=== PATIENT | female | born 1935 | race Caucasian/White ===

== ENCOUNTER 2021-04-23 18:25 | Inpatient (IN) | payer BC, OTHER ==
[~2021-04-23] VITALS: Ht 162.6 cm; Wt 76.2 kg
[2021-04-23] MEDS ORDERED: WARF1TAB2 (18:34)
--- NOTE | 2021-04-23 19:15 | NUR ---
Report recieved by Ashley. Pt was bib ra for a ground level mechanical fall and severe left arm pain.
[2021-04-23] MEDS ORDERED: MORPHINE SULFATE 2 MG/1 ML DISP.SYRIN IV ONE (19:30)
[2021-04-23] MEDS ORDERED: ONDANSETRON 4 MG/2 ML VIAL IV ONE ×2 (19:30→21:45)
[2021-04-23] MEDS ORDERED: ONDANSETRON 4 MG/2 ML VIAL ONE ×2 (19:32→21:50)
[2021-04-23] MEDS ORDERED: MORPHINE SULFATE 4 MG/1 ML DISP.SYRIN ONE ×2 (19:32→21:50)
[2021-04-23 19:48] LABS: HEMATOCRIT 35.7 % (31.2-41.9); MEAN CORPUSCULAR VOLUME 92.9 fL (75.5-95.3); PLATELET COUNT (AUTO) 378 K/uL (179-408)
--- NOTE | 2021-04-23 19:56 | NUR ---
Pt. taken to CT.
[2021-04-23 20:00] LABS: CARBON DIOXIDE 25 mmol/L (21-32); CHLORIDE 107 mmol/L (98-107); GLUCOSE 117 mg/dL (74-106); POTASSIUM 4.6 mmol/L (3.5-5.1); UREA NITROGEN, BLOOD 33 mg/dL (7-18)
[2021-04-23 20:15] LABS: ALANINE AMINOTRANSFERASE 23 U/L (14-59); ALKALINE PHOSPHATASE 74 U/L (50-136); ASPARTATE AMINOTRANSFERASE 20 U/L (15-37); BILIRUBIN,DIRECT 0.1 mg/dL (0.0-0.2); BILIRUBIN,TOTAL 0.4 mg/dL (0.2-1.0); TOTAL PROTEIN, SERUM 7.2 g/dL (6.4-8.2)
[2021-04-23] MEDS ORDERED: MORPHINE SULFATE 4 MG/1 ML DISP.SYRIN IV ONE (21:45)
[2021-04-23] MEDS ORDERED: Z GUARD REMEDY PASTE 57 GM TUBE TOP PRN (22:15)
[2021-04-23] MEDS ORDERED: ONDANSETRON 4 MG/2 ML VIAL IV PRN (22:15)
[2021-04-23] MEDS ORDERED: ACETAMINOPHEN 325 MG TABLET PO PRN (22:15)
--- NOTE | 2021-04-23 23:14 | NUR ---
Gave report to AMAYA Scott.
[2021-04-23 23:27] VITALS: BP 110/59
[2021-04-23] MEDS: IV NS 1000 ML 1,000 ML IV PRN (23:57)
[2021-04-24 00:04] VITALS: BP 121/79
[2021-04-24] MEDS: MORPHINE SULFATE 2 MG/1 ML DISP.SYRIN IV PRN ×4 (00:42→20:22)
--- NOTE | 2021-04-24 05:49 | NUR ---
Pt arrived on unit on 04/23/21 at 2345H in stable condition. Patient is AOx3 and forgetful at times. Patient is pleasant and able to be redirected. C/o pain that is relieved by Morphine. Able to make needs known. Safety and comfort provided. No other issues or concerns at this time, will endorse to day shift.
[2021-04-24 06:34] LABS: HEMATOCRIT 31.3 % (31.2-41.9); MEAN CORPUSCULAR HEMOGLOBIN 31.1 uug (24.7-32.8); MEAN CORPUSCULAR VOLUME 93.9 fL (75.5-95.3); PLATELET COUNT (AUTO) 241 K/uL (179-408)
[2021-04-24 06:53] LABS: CARBON DIOXIDE 25 mmol/L (21-32); CHLORIDE 109 mmol/L (98-107); CHOLESTEROL 141 mg/dL (<200); CREATININE 1.9 mg/dL (0.6-1.3); GLUCOSE 117 mg/dL (74-106); HDL CHOLESTEROL 63 mg/dL (40-60); MAGNESIUM 2.1 mg/dL (1.8-2.4); PHOSPHOROUS 3.6 mg/dL (2.5-4.9); POTASSIUM 4.8 mmol/L (3.5-5.1); TRIGLYCERIDES 49 MG/DL (30-150); UREA NITROGEN, BLOOD 31 mg/dL (7-18)
--- NOTE | 2021-04-24 07:37 | NUR ---
Received patient resting in bed. AOx3, forgetful at times. On room air. No signs of acute distress. With right FA #22 IV access with PNSS running at 75cc/hr. Bed locked and in low position Will continue to monitor.
[2021-04-24] MEDS: HEPARIN SODIUM,PORCINE 5,000 UNITS/ML VIAL SQ SCH ×2 (11:20→21:50)
[2021-04-24] MEDS: FERROUS SULFATE 325 MG TABEC PO SCH (11:38)
[2021-04-24] MEDS: CYANOCOBALAMIN 1,000 MCG TABLET PO SCH (11:38)
[2021-04-24] MEDS: ASPIRIN 81 MG TAB.CHEW PO SCH (11:38)
[2021-04-24 12:00] VITALS: BP 143/47
[2021-04-24] MEDS: IV NS 1000 ML 1,000 ML IV PRN (13:38)
[2021-04-24] MEDS ORDERED: WARF1TAB2 PO (15:14)
[2021-04-24] MEDS ORDERED: ASPI-866 PO (15:17)
[2021-04-24] MEDS ORDERED: LEVO25TA9 PO (15:24)
[2021-04-24] MEDS ORDERED: RABE20TA32 PO (15:24)
[2021-04-24] MEDS ORDERED: FURO-152 PO (15:24)
[2021-04-24] MEDS ORDERED: LOSA25TA27 PO (15:24)
[2021-04-24] MEDS ORDERED: FERR325T28 PO (15:24)
[2021-04-24] MEDS ORDERED: CYAN-51 PO (15:24)
[2021-04-24] MEDS ORDERED: SIMV10TA98 PO (15:24)
[2021-04-24] MEDS ORDERED: WARF1TAB86 PO (15:27)
[2021-04-24 16:22] VITALS: BP 137/53
[2021-04-24 20:05] VITALS: BP 127/56
--- NOTE | 2021-04-24 20:22 | NUR ---
PATIENT ALERT ORIENTED, NO SOB NO CHEST PAIN, COMPLAIN OF LEFT SHOULDER PAIN 9/10, GIVEN MORPHINE IV ORDERED. FAMILY AT BEDSIDE, ICE PACK THE LEFT SHOULDER WHICH HELPS THE PAIN, CALL LIGHT WITH REACH.
[2021-04-24] MEDS: SIMVASTATIN 10 MG TABLET PO SCH (21:49)
[2021-04-25] MEDS: MORPHINE SULFATE 2 MG/1 ML DISP.SYRIN IV PRN ×2 (03:12→09:42)
[2021-04-25] MEDS: IV NS 1000 ML 1,000 ML IV PRN (03:13)
[2021-04-25 04:05] VITALS: BP 166/67
[2021-04-25] MEDS: LEVOTHYROXINE SODIUM 25 MCG TABLET PO SCH (06:07)
[2021-04-25] MEDS: PANTOPRAZOLE SODIUM 40 MG TABLET.DR PO SCH (06:07)
[2021-04-25 06:29] LABS: HEMATOCRIT 29.9 % (31.2-41.9); MEAN CORPUSCULAR HEMOGLOBIN 30.4 uug (24.7-32.8); MEAN CORPUSCULAR VOLUME 92.9 fL (75.5-95.3); PLATELET COUNT (AUTO) 299 K/uL (179-408)
--- NOTE | 2021-04-25 06:42 | NUR ---
PATIENT ALERT ORIENTED, CONT ON PAIN MANAGEMENT DUE LEFT SHOULDER FX, LEFT SHOULDER HAS SLING IN PLACE, CONT TO MONITOR.
[2021-04-25] MEDS ORDERED: PROPOFOL 200 MG/20 ML BOTTLE IV ONE (06:53)
[2021-04-25] MEDS ORDERED: GLYCOPYRROLATE 0.2 MG/ML VIAL MC ONE (06:53)
[2021-04-25] MEDS ORDERED: DEXAMETHASONE SOD PHOSPHATE 4 MG INJ IV ONE (06:53)
[2021-04-25] MEDS ORDERED: CEFAZOLIN 1 G VIAL MC ONE (06:53)
[2021-04-25] MEDS ORDERED: NEOSTIGMINE METHYLSULFATE 10 MG/10 ML VIAL IV ONE (06:53)
[2021-04-25 06:58] LABS: CARBON DIOXIDE 24 mmol/L (21-32); CHLORIDE 107 mmol/L (98-107); CREATININE 1.5 mg/dL (0.6-1.3); GLUCOSE 101 mg/dL (74-106); MAGNESIUM 2.1 mg/dL (1.8-2.4); PHOSPHOROUS 2.2 mg/dL (2.5-4.9); POTASSIUM 4.6 mmol/L (3.5-5.1); UREA NITROGEN, BLOOD 30 mg/dL (7-18)
--- NOTE | 2021-04-25 07:30 | NUR ---
Handoff report received. Pt is A&Ox3, stable condition, no c/o of pain, v/s WDL. No SOB noted. No s/s of respiratory distress noted. Side rails up as appropriate, bed locked in low position. Call light and table within reach. All needs met at this time.
[2021-04-25] MEDS: HEPARIN SODIUM,PORCINE 5,000 UNITS/ML VIAL SQ SCH (09:00)
[2021-04-25] MEDS: ASPIRIN 81 MG TAB.CHEW PO SCH (09:40)
[2021-04-25] MEDS: FERROUS SULFATE 325 MG TABEC PO SCH (09:41)
[2021-04-25] MEDS: CYANOCOBALAMIN 1,000 MCG TABLET PO SCH (09:42)
[2021-04-25 12:00] VITALS: BP 173/88
[2021-04-25] MEDS ORDERED: PHYTONADIONE 5 MG TABLET PO ONE (12:00)
[2021-04-25] MEDS ORDERED: hydrALAZINE HCL 20 MG/1 ML VIAL IV ONE (12:15)
[2021-04-25 15:57] VITALS: BP 140/58
[2021-04-25] MEDS ORDERED: POLYMYXIN B SULFATE 500,000 UNITS VIAL ONE (15:57)
[2021-04-25] MEDS ORDERED: BUPIVACAINE 0.25% 30 ML VIAL ONE (15:58)
[2021-04-25] MEDS ORDERED: VANCOMYCIN 1000 MG VIAL ONE (15:58)
[2021-04-25] MEDS ORDERED: FENTANYL CITRATE 100 MCG/2 ML AMPUL ONE ×2 (16:19→19:12)
[2021-04-25] MEDS ORDERED: ROCURONIUM BROMIDE 50 MG/5 ML VIAL ONE (16:19)
[2021-04-25] MEDS ORDERED: SEVOFLURANE 250 ML BOTTLE ONE (16:29)
[2021-04-25] MEDS ORDERED: SODIUM PHOSPHATE MM 15 MMOL in IV NORMAL SALINE 250 ML IV ONE (16:30)
--- NOTE | 2021-04-25 16:40 | NUR ---
Pt left for procedure. A&Ox3, in stable condition, v/s wdl, no s/s respiratory distress.
[2021-04-25] MEDS ORDERED: BUPIVACAINE PF 0.5% 30 ML VIAL ONE (18:19)
[2021-04-25] MEDS ORDERED: IV D5W-0.45% NS +20 KCL 1,000 ML IV ONE (19:30)
[2021-04-25] MEDS ORDERED: LABETALOL HCL 100 MG/20 ML VIAL ONE (20:01)
[2021-04-25] MEDS: IV D5W-0.45% NS +20 KCL 1,000 ML IV PRN (20:30)
--- NOTE | 2021-04-25 20:30 | NUR ---
Pt came back from Surgery. A&Ox3, verbally responsive, able to make needs known. On oxygen at 2LPM via NC, no signs of respiratory distress. With sling on left shoulder. Repositioned comfortably in bed, IVF infusing well. New orders carried out. Will continue to monitor.
[2021-04-25 20:35] VITALS: BP 152/62
[2021-04-25] MEDS: SIMVASTATIN 10 MG TABLET PO SCH (20:54)
[2021-04-25] MEDS: HYDROCODONE/APAP 10-325 MG TABLET PO PRN (20:56)
[2021-04-25 21:15] VITALS: BP 142/75
[2021-04-26] MEDS: CEFAZOLIN 1 G in IV DEXTROSE 5% 50 ML IV SCH ×2 (01:17→08:26)
[2021-04-26 04:00] VITALS: BP 132/69
[2021-04-26] MEDS: MORPHINE SULFATE 4 MG/1 ML DISP.SYRIN IV PRN ×3 (04:03→17:20)
[2021-04-26] MEDS: PANTOPRAZOLE SODIUM 40 MG TABLET.DR PO SCH (06:05)
[2021-04-26] MEDS: LEVOTHYROXINE SODIUM 25 MCG TABLET PO SCH (06:05)
--- NOTE | 2021-04-26 06:25 | NUR ---
Slept intermittently through the night. PRN Pain medication administered as ordered. Tolerated due medications. Dressing clean and intact, applied ice on L shoulder, positioned comfortably in bed as needed. Pt was anxious sometimes but easily consolable. Safety precautions maintained at all times. All needs attended to and met.
[2021-04-26 06:32] LABS: HEMATOCRIT 31.9 % (31.2-41.9); MEAN CORPUSCULAR HEMOGLOBIN 29.9 uug (24.7-32.8); MEAN CORPUSCULAR VOLUME 91.8 fL (75.5-95.3); PLATELET COUNT (AUTO) 311 K/uL (179-408)
[2021-04-26 06:50] LABS: CARBON DIOXIDE 19 mmol/L (21-32); CHLORIDE 107 mmol/L (98-107); CREATININE 1.4 mg/dL (0.6-1.3); GLUCOSE 204 mg/dL (74-106); MAGNESIUM 1.9 mg/dL (1.8-2.4); PHOSPHOROUS 3.2 mg/dL (2.5-4.9); POTASSIUM 4.5 mmol/L (3.5-5.1); UREA NITROGEN, BLOOD 23 mg/dL (7-18)
--- NOTE | 2021-04-26 07:15 | NUR ---
patient in bed awake, patient confused but reoriented. patient has no complains of any SOB, pain or discomfort at this time. call light and belongings kept within reach. safety precautions in place. will continue to monitor.
[2021-04-26] MEDS: FERROUS SULFATE 325 MG TABEC PO SCH (08:26)
[2021-04-26] MEDS: ASPIRIN 81 MG TAB.CHEW PO SCH (08:26)
[2021-04-26] MEDS: CYANOCOBALAMIN 1,000 MCG TABLET PO SCH (08:26)
[2021-04-26] MEDS: HYDROCODONE/APAP 10-325 MG TABLET PO PRN ×2 (10:12→20:39)
[2021-04-26] MEDS: IV D5W-0.45% NS +20 KCL 1,000 ML IV PRN (10:42)
[2021-04-26 12:00] VITALS: BP 139/37
[2021-04-26] MEDS ORDERED: FERROUS SULFATE 325 MG TABEC PO SCH (13:00)
[2021-04-26] MEDS ORDERED: SIMVASTATIN 10 MG TABLET PO SCH (13:00)
[2021-04-26] MEDS ORDERED: CYANOCOBALAMIN 1,000 MCG TABLET PO SCH (13:00)
[2021-04-26] MEDS ORDERED: LEVOTHYROXINE SODIUM 25 MCG TABLET PO SCH (13:00)
[2021-04-26] MEDS ORDERED: ASPIRIN EC 81 MG TABLET.DR PO SCH (13:00)
[2021-04-26] MEDS: LOSARTAN POTASSIUM 25 MG TABLET PO SCH (14:20)
[2021-04-26 15:55] VITALS: BP 105/73
[2021-04-26] MEDS: WARFARIN SODIUM 2 MG TABLET PO SCH (17:31)
--- NOTE | 2021-04-26 18:22 | NUR ---
patient in bed awake, HOB elevated. repositioned for comfort. no complains of any SOB, pain or discomfort at this time. patient on Room air with saturation at 99%. safety precautions in place. at bedside. call light and belongings within reach. will report to oncoming nurse.
[2021-04-26 20:06] VITALS: BP 140/67
[2021-04-26] MEDS: SIMVASTATIN 10 MG TABLET PO SCH (20:38)
--- NOTE | 2021-04-26 23:33 | NUR ---
RECEIVED REPORT FROM AM NURSE MS PT IS ALERT AND ORIENTED X3 DAUGHTER AT BEDSIDE PT C/O LT SHUOULDER PAIN. CALL LIGHT WITHIN REACH WILL GET MREDICATION FOR PAIN.
--- NOTE | 2021-04-27 00:10 | NUR ---
PT WAS GIVEN HS MEDICATION AND NORCO 10/325 FOR PAIN 05/20 NO ADVERSE REACTION FROM MEDICATION. CALL LIGHT WITHIN REACH BED IN LOW POSITION AND PT NEURO CHECK WERE DONE . WILL CONTINUE TO MONITOR HOURLY.
[2021-04-27] MEDS: IV D5W-0.45% NS +20 KCL 1,000 ML IV PRN (00:21)
[2021-04-27 04:06] VITALS: BP 113/62
[2021-04-27] MEDS: PANTOPRAZOLE SODIUM 40 MG TABLET.DR PO SCH (06:11)
[2021-04-27] MEDS: LEVOTHYROXINE SODIUM 25 MCG TABLET PO SCH (06:11)
[2021-04-27 06:25] LABS: HEMATOCRIT 30.1 % (31.2-41.9); MEAN CORPUSCULAR HEMOGLOBIN 29.8 uug (24.7-32.8); MEAN CORPUSCULAR VOLUME 92.1 fL (75.5-95.3); PLATELET COUNT (AUTO) 309 K/uL (179-408)
[2021-04-27 06:35] LABS: CARBON DIOXIDE 21 mmol/L (21-32); CHLORIDE 105 mmol/L (98-107); CREATININE 1.4 mg/dL (0.6-1.3); GLUCOSE 112 mg/dL (74-106); MAGNESIUM 2.1 mg/dL (1.8-2.4); POTASSIUM 4.8 mmol/L (3.5-5.1); UREA NITROGEN, BLOOD 26 mg/dL (7-18)
[2021-04-27] MEDS: ASPIRIN 81 MG TAB.CHEW PO SCH (08:08)
[2021-04-27] MEDS: CYANOCOBALAMIN 1,000 MCG TABLET PO SCH (08:08)
[2021-04-27] MEDS: FERROUS SULFATE 325 MG TABEC PO SCH (08:08)
[2021-04-27] MEDS: LOSARTAN POTASSIUM 25 MG TABLET PO SCH (08:09)
[2021-04-27] MEDS: HYDROCODONE/APAP 10-325 MG TABLET PO PRN ×2 (08:54→14:00)
--- NOTE | 2021-04-27 08:54 | NUR ---
RECEIVED IN BED AWAKE ALERT AND ORIENTED COOPERATIVE MEDICATED FOR C/O PAIN AND DISCOMFORTS ORDERED REMAIN ON IVF ORDERED WITH NO S/S OF INFILTERATION ON SITE LEFT SHOULDER WITH DRESSING INTACT WITH SLING WITH ADEQUATE CIRCULATION AT THIS TIME ALL HER PERSONAL BELONGINGS ARE WITHIN EASY REACH AT THIS TIME WILL CONTINUE TO OBSERVE.
[2021-04-27 11:34] VITALS: BP 132/76
--- NOTE | 2021-04-27 11:47 | NUR ---
PATIENT SEEN AND EXAMINED BY CADY RAMIREZ DNP WITH NEW ORDERS AND NOTED
--- NOTE | 2021-04-27 14:02 | NUR ---
PHYSICAL THERAPY HERE AND PATIENT ASSISTED OUT OF BED AND PER REPORT ENDURANCE IS FAIR AND PATIENT IS BEING REFERED FOR ACUTE REHAB EVALUATION.
[2021-04-27 15:28] LABS: *BILIRUBIN,URIN NEGATIVE (NEGATIVE); *BLOOD, URINE NEGATIVE (NEGATIVE); *CLARITY,URINE CLEAR (CLEAR); *COLOR,URINE YELLOW (YELLOW); *KETONES,URINE NEGATIVE (NEGATIVE); *UROBILINOGEN,URINE 0.2 E.U./dl (NORMAL); LEUKOCYTE ESTERASE ,URINE NEGATIVE (NEGATIVE); NITRITE, URINE NEGATIVE (NEGATIVE); PH,URINE 5.5 (5.0-8.0); UGLUCOSE NEGATIVE (NEGATIVE)
[2021-04-27 16:00] VITALS: BP 144/68
[2021-04-27] MEDS: SENNOSIDES 1 TABLET PO SCH ×2 (16:52→20:07)
[2021-04-27] MEDS: WARFARIN SODIUM 2 MG TABLET PO SCH (16:57)
[2021-04-27] MEDS ORDERED: SODIUM PHOSPHATE MM 15 MMOL in IV NORMAL SALINE 250 ML IV ONE (17:00)
--- NOTE | 2021-04-27 17:32 | NUR ---
SODIUM PHOS IS IN PROGRESS ORDERED TOLERATING WELL TO HER RIGHT HAND.
--- NOTE | 2021-04-27 19:00 | NUR ---
Received pt in bed, sleeping but easily arousable. No s/s of respiratory distress, no pain or discomfort reported at this time. Dressing on L shoulder intact. Bed locked and in low position, side rails up, call light within reach.
[2021-04-27 20:03] VITALS: BP 132/56
[2021-04-27] MEDS: SIMVASTATIN 10 MG TABLET PO SCH (20:04)
--- NOTE | 2021-04-27 20:07 | NUR ---
Senokot medication already administered by AM shift. Will continue to monitor.
[2021-04-27] MEDS: MORPHINE SULFATE 4 MG/1 ML DISP.SYRIN IV PRN (20:53)
[2021-04-28 04:09] VITALS: BP 145/80
[2021-04-28] MEDS ORDERED: LORAZEPAM 2 MG/1 ML VIAL IV PRN (04:45)
--- NOTE | 2021-04-28 04:46 | NUR ---
Pt's BP is 145/80, P of 144. Pt is also anxious. Notified Jon Zamora NP. Received new orders. Upgrade pt to Telemetry and do an EKG.
[2021-04-28] MEDS ORDERED: METOPROLOL TARTRATE 50 MG TABLET PO ONE (06:00)
[2021-04-28] MEDS: LEVOTHYROXINE SODIUM 25 MCG TABLET PO SCH (06:03)
[2021-04-28] MEDS: PANTOPRAZOLE SODIUM 40 MG TABLET.DR PO SCH (06:04)
--- NOTE | 2021-04-28 06:36 | NUR ---
Pt's EKG showed sinus tachycardia with Pulse of 145bpm. Pt denies chest pain or any discomfort. Notified Jon Zamora NP. Received an order to administer Ativan 0.5 mg IV and monitor. Administered medication and tolerated well by the pt. Jon Zamora also ordered to have the pt bear down without breathing and see if there will be any changes on the monitor. Pt still sinus tach after bearing down. Jon Zamora ordered to refer results to the production boring machine operator clergy member. Dr. Martinez, the production boring machine operator clergy member is notified on pt's condition and received an order of Metoprolol 50mg PO x 1. Administered medication and tolerated well by the pt. Latest pulse is 144bpm. No chest pain or lightheadedness reported. Will endorse to incoming nurse.
[2021-04-28 07:07] LABS: CARBON DIOXIDE 24 mmol/L (21-32); CHLORIDE 106 mmol/L (98-107); CREATININE 1.5 mg/dL (0.6-1.3); GLUCOSE 111 mg/dL (74-106); MAGNESIUM 2.1 mg/dL (1.8-2.4); PHOSPHOROUS 1.8 mg/dL (2.5-4.9); POTASSIUM 4.8 mmol/L (3.5-5.1); UREA NITROGEN, BLOOD 32 mg/dL (7-18)
[2021-04-28 07:11] LABS: HEMATOCRIT 28.9 % (31.2-41.9); MEAN CORPUSCULAR HEMOGLOBIN 30.3 uug (24.7-32.8); MEAN CORPUSCULAR VOLUME 92.7 fL (75.5-95.3); PLATELET COUNT (AUTO) 336 K/uL (179-408)
--- NOTE | 2021-04-28 07:45 | NUR ---
RECEIVED PATIENT IN BED ASLEEP SHE IS ON TELEMETRY MONITORING WAS IN A FLUTTER AT THE BEGINNING BUT IS NOW IN SINUS RHYTHM AT 75 AT THIS SHE IS ON ROOM AIR WITH NO SHORTNESS OF BREATH CALL LIGHTS AND PERSONAL BELONGINGS ARE WITHIN EASY REACH MADE COMFORTABLE AND WILL CONTINUE TO OBSERVE.
[2021-04-28] MEDS: FERROUS SULFATE 325 MG TABEC PO SCH (09:04)
[2021-04-28] MEDS: LOSARTAN POTASSIUM 25 MG TABLET PO SCH (09:05)
[2021-04-28] MEDS: ASPIRIN 81 MG TAB.CHEW PO SCH (09:05)
[2021-04-28] MEDS: CYANOCOBALAMIN 1,000 MCG TABLET PO SCH (09:05)
[2021-04-28] MEDS ORDERED: FUROSEMIDE 20 MG/2 ML VIAL IV ONE (09:15)
--- NOTE | 2021-04-28 09:23 | NUR ---
DR NGUYEN ROVING CHANGER HERE TO SEE AND EXAMINE PATIENT WITH NEW ORDERS AND NOTED
[2021-04-28 11:32] VITALS: BP 114/65
[2021-04-28] MEDS: HYDROCODONE/APAP 10-325 MG TABLET PO PRN ×2 (12:49→20:44)
[2021-04-28] MEDS ORDERED: NEUTRA PHOS PACKET PO ONE (15:30)
--- NOTE | 2021-04-28 15:30 | NUR ---
CADY RAMIREZ DNP HERE TO SEE PATIENT AWARE OF PATIENTS HEART RATE BEING VERY HIGH UP TO 145 AND MD WAS NOTIFIED WITH MEDICATION GIVEN ORDERED WITH NO NEW ORDERS AT THIS TIME.
[2021-04-28 15:42] VITALS: BP 121/54
--- NOTE | 2021-04-28 16:30 | NUR ---
PHOS LEVEL IS 2.0 WITH NEW REPLACEMENT ORDER AND NOTED.
[2021-04-28] MEDS ORDERED: WARFARIN SODIUM 1 MG TABLET PO SCH (17:00)
--- NOTE | 2021-04-28 18:00 | NUR ---
PATIENT WAS SEEN BY THE PHYSICAL THERAPY WITH FAIR ENDURANCE NOTED WITH THE GAIT BELT WILL CONTINUE TO UNDERSTAND. Addendum: 04/28/21 at 1813 by TELLY DE LA CRUZ RN WILL CONTINUE TO [id number].
[2021-04-28 20:00] VITALS: BP 98/42
--- NOTE | 2021-04-28 20:00 | NUR ---
PATIENT ALERT ORIENTED, NO SOB NO CHEST PAIN, CONT ON PAIN MANAGEMENT DUE LEFT SHOULDER PAIN. PATIENT ON TELE MONITOR SINUS RTHYTHM , CONT TO MONITOR.
[2021-04-28] MEDS: SENNOSIDES 1 TABLET PO SCH (20:12)
[2021-04-28] MEDS: SIMVASTATIN 10 MG TABLET PO SCH (20:12)
[2021-04-29] VITALS: BP 133/67
--- NOTE | 2021-04-29 04:45 | NUR ---
PATIENT HAS TWO SOFT BOWEL, LEFT SHOULD DRESSING INTACT, AND WITH SLING ORDERED. PATIENT WAS KEPT CLEAN AND DRY. CONT TO MONITOR, PATIENT HAS NO COMPLAIN OF PAIN AT THIS TIME.
[2021-04-29 05:44] VITALS: BP 147/70
[2021-04-29] MEDS: HYDROCODONE/APAP 10-325 MG TABLET PO PRN ×3 (05:46→17:15)
[2021-04-29] MEDS: PANTOPRAZOLE SODIUM 40 MG TABLET.DR PO SCH (06:00)
[2021-04-29] MEDS: LEVOTHYROXINE SODIUM 25 MCG TABLET PO SCH (06:00)
[2021-04-29 06:59] LABS: CARBON DIOXIDE 25 mmol/L (21-32); CHLORIDE 105 mmol/L (98-107); CREATININE 1.6 mg/dL (0.6-1.3); GLUCOSE 111 mg/dL (74-106); PHOSPHOROUS 2.1 mg/dL (2.5-4.9); POTASSIUM 4.3 mmol/L (3.5-5.1); UREA NITROGEN, BLOOD 34 mg/dL (7-18)
[2021-04-29] MEDS ORDERED: NEUTRA PHOS PACKET PO ONE (07:15)
--- NOTE | 2021-04-29 08:14 | NUR ---
PATIENT SEEN AND EXAMINED BY DR NGUYEN WITH NEW ORDERS AND NOTED
[2021-04-29] MEDS: ASPIRIN 81 MG TAB.CHEW PO SCH (09:05)
[2021-04-29] MEDS: FERROUS SULFATE 325 MG TABEC PO SCH (09:06)
[2021-04-29] MEDS: LOSARTAN POTASSIUM 25 MG TABLET PO SCH (09:06)
[2021-04-29] MEDS: FUROSEMIDE 20 MG TABLET PO SCH (09:06)
[2021-04-29] MEDS: CYANOCOBALAMIN 1,000 MCG TABLET PO SCH (09:06)
[2021-04-29] MEDS: ENSURE WITH FIBER 237 ML LIQUID (CHOCOLATE) PO SCH (09:15)
--- NOTE | 2021-04-29 10:02 | NUR ---
PHYSICAL THERAPY HERE TO SEE PATIENT AND SHE WAS MEDICATED WITH NORCO ORDERED FOR PAIN ON HER LEFT SHOULDER ENDURANCE IS FAIR AT THIS TIME WILL CONTINUE TO OBSERVE.
[2021-04-29 11:47] VITALS: BP 132/55
[2021-04-29 15:47] VITALS: BP 98/48
[2021-04-29] MEDS: WARFARIN SODIUM 2 MG TABLET PO SCH (17:12)
--- NOTE | 2021-04-29 17:15 | NUR ---
COUMADIN ORDERED WITH NO S/S OF BLEEDING MEDICATED WITH NORCO FOR PAIN ASSISTED AMBULATED WITH HAND HELD TO THE BATHROOM AND VOIDED AND ASSISTED BACK INTO BED LEFT ARM SLING INTACT WITH ADEQUATE CIRCULATION TO HER FINGERS MADE COMFORTABLE WILL CONTINUE TO OBSERVE.
[2021-04-29 20:06] VITALS: BP 122/59
[2021-04-29] MEDS: SENNOSIDES 1 TABLET PO SCH (20:11)
[2021-04-29] MEDS: SIMVASTATIN 10 MG TABLET PO SCH (20:27)
[2021-04-29] MEDS: MORPHINE SULFATE 4 MG/1 ML DISP.SYRIN IV PRN (22:35)
--- NOTE | 2021-04-29 22:35 | NUR ---
PATIENT IS IN BED AWAKE AND ALERT STATED THAT SHE IS HAVING SEVERE INCISIONAL PAIN ON HER LEFT ARM AT THIS TIME MEDICATED WITH MORPHINE ORDERED REPOSITIONED SLING REMAINS INTACT WITH ADEQUATE CIRCULATION MADE COMFORTABLE AND WILL CONTINUE TO OBSERVE.
[2021-04-30 04:06] VITALS: BP 151/75
--- NOTE | 2021-04-30 06:00 | NUR ---
MEDICATED WITH NORCO FOR PAIN ORDERED MADE COMFORTABLE SHE IS ALERT AND ORIENTED LEFT ARM WITH SLING IS INTACT WITH ADEQUATE CIRCULATION CALL LIGHT AND PERSONAL BELONGINGS ARE WITHIN EASY REACH MADE COMFORTABLE WILL CONTINUE TO OBSERVE AND PROVIDE COMFORT.
[2021-04-30 06:41] LABS: HEMATOCRIT 26.2 % (31.2-41.9); MEAN CORPUSCULAR HEMOGLOBIN 29.9 uug (24.7-32.8); MEAN CORPUSCULAR VOLUME 92.3 fL (75.5-95.3); PLATELET COUNT (AUTO) 344 K/uL (179-408)
[2021-04-30] MEDS: HYDROCODONE/APAP 10-325 MG TABLET PO PRN ×2 (06:41→12:19)
[2021-04-30] MEDS: LEVOTHYROXINE SODIUM 25 MCG TABLET PO SCH (06:41)
[2021-04-30] MEDS: PANTOPRAZOLE SODIUM 40 MG TABLET.DR PO SCH (06:41)
[2021-04-30 07:01] LABS: ALANINE AMINOTRANSFERASE 12 U/L (14-59); ALKALINE PHOSPHATASE 60 U/L (50-136); ASPARTATE AMINOTRANSFERASE 14 U/L (15-37); BILIRUBIN,TOTAL 0.5 mg/dL (0.2-1.0); CARBON DIOXIDE 26 mmol/L (21-32); CHLORIDE 105 mmol/L (98-107); CREATININE 1.6 mg/dL (0.6-1.3); GLUCOSE 111 mg/dL (74-106); MAGNESIUM 2.1 mg/dL (1.8-2.4); PHOSPHOROUS 3.1 mg/dL (2.5-4.9); POTASSIUM 4.9 mmol/L (3.5-5.1); TOTAL PROTEIN, SERUM 5.6 g/dL (6.4-8.2); UREA NITROGEN, BLOOD 33 mg/dL (7-18)
--- NOTE | 2021-04-30 08:00 | NUR ---
START OF SHIFT: RECEIVED CHANGE OF SHIFT REPORT, A/OX3. PT ON ROOM AIR, NO SIGNS OF DISTRESS, NO REPORTS OF PAIN AT THIS TIME. PT HAS SLING ON LEFT SHOULDER, IV ACCESS ON THE RIGHT FA SALINE LOCK. PT BED LOW AND LOCKED, CALL LIGHT WITHIN REACH, HOB SEMI FOWLERS, WILL CONTINUE TO MONITOR.
--- NOTE | 2021-04-30 08:00 | NUR ---
RECEIVED CHANGE OF SHIFT REPORT, PT C/O GENERALIZED WEAKNESS, A/OX4, ON TELE MONITOR NSR. PT ON ROOM AIR, NO SIGNS OF DISTRESS, NO REPORTS OF PAIN AT THIS TIME. PT BED LOW AND LOCKED, CALL LIGHT WITHIN REACH, HOB SEMI FOWLERS, WILL CONTINUE TO MONITOR. Addendum: 04/30/21 at 1135 by HEIDI LAW RN DISREGARD...WRONG PT
[2021-04-30] MEDS: CYANOCOBALAMIN 1,000 MCG TABLET PO SCH (08:37)
[2021-04-30] MEDS: FERROUS SULFATE 325 MG TABEC PO SCH (08:37)
[2021-04-30] MEDS: ASPIRIN 81 MG TAB.CHEW PO SCH (08:37)
[2021-04-30] MEDS: ENSURE WITH FIBER 237 ML LIQUID (CHOCOLATE) PO SCH (08:37)
[2021-04-30] MEDS: FUROSEMIDE 20 MG TABLET PO SCH (08:37)
[2021-04-30] MEDS: LOSARTAN POTASSIUM 25 MG TABLET PO SCH (08:41)
[2021-04-30] MEDS: MORPHINE SULFATE 4 MG/1 ML DISP.SYRIN IV PRN ×3 (08:47→16:17)
[2021-04-30] MEDS ORDERED: FURO20TA4 PO (10:00)
[2021-04-30 12:00] VITALS: BP 133/61
[2021-04-30 16:00] VITALS: BP 123/58
[2021-04-30] MEDS: WARFARIN SODIUM 2 MG TABLET PO SCH (16:18)
--- NOTE | 2021-04-30 16:40 | NUR ---
PT DISCHARGED TO [facility] , REPORT CALLED TO AMAYA BUCK. PT LEFT VIA [facility] WITH TO FOLLOW TO REHAB FACILITY. PT LEFT WITH ALL BELONGINGS AND PAPERWORK, ALL DOCUMENTS SIGNED. PT A/OX3, FORGETFUL, AMBULATORY WITH ASSIST, ON ROOM AIR, NO SIGNS OF DISTRESS, PAIN MEDICATIONS GIVEN PRIOR TO TRANSPORT FOR 10/10 PAIN ON THE LEFT SHOULDER. SURGICAL DRESSING IN TACT, CLEAN AND DRY. LAST BM WAS TODAY X2. PT COOPERATIVE AND PLEASANT.
== END 2021-04-30 16:40 | DRG 483 ==
LOC: ER 18:25 → TELE3 23:16 → MEDSURG3 23:20 → TELE3 04-28 04:42 → MEDSURG3 04-29 18:01
PROVIDERS: ADMIT Nurse Practitioner Acute Care; ATTEND Nurse Practitioner Acute Care
PROC: 0RRK0J6 Replacement of Left Shoulder Joint with Synthetic Substitute, Humeral Surface, Open Approach (ICD-10-PCS; principal; 2021-04-25)
PROC: 0LM20ZZ Reattachment of Left Shoulder Tendon, Open Approach (ICD-10-PCS; 2021-04-25)
DX: S42.292A Other displaced fracture of upper end of left humerus, initial encounter for closed fracture (principal); N17.0 Acute kidney failure with tubular necrosis; I50.33 Acute on chronic diastolic (congestive) heart failure; I48.92 Unspecified atrial flutter; I13.0 Hypertensive heart and chronic kidney disease with heart failure and stage 1 through stage 4 chronic kidney disease, or unspecified chronic kidney disease; S42.212A Unspecified displaced fracture of surgical neck of left humerus, initial encounter for closed fracture; W01.0XXA Fall on same level from slipping, tripping and stumbling without subsequent striking against object, initial encounter; Y92.512 Supermarket, store or market as the place of occurrence of the external cause; Z96.611 Presence of right artificial shoulder joint; Z96.642 Presence of left artificial hip joint; I48.0 Paroxysmal atrial fibrillation; N18.9 Chronic kidney disease, unspecified; M85.80 Other specified disorders of bone density and structure, unspecified site; K21.9 Gastro-esophageal reflux disease without esophagitis; Z86.73 Personal history of transient ischemic attack (TIA), and cerebral infarction without residual deficits; Z79.899 Other long term (current) drug therapy; Z79.82 Long term (current) use of aspirin; Z79.890 Hormone replacement therapy; Z79.01 Long term (current) use of anticoagulants; E78.5 Hyperlipidemia, unspecified; E03.9 Hypothyroidism, unspecified; G93.89 Other specified disorders of brain; S09.90XA Unspecified injury of head, initial encounter
CPT/HCPCS: 36415; 70450; 71045; 72125; 73020; 73030; 76770; 83735; 84100; 85025; 85610; 85730; 86850; 86900; 86901; 93005; 97161; A4649; A4663; C1776; G0378; J0360; J0690; J1100; J1644; J1940; J2060; J2270; J2405; J3010; J3370; J3490; J7030; J7050; J7060